=== PATIENT | male | born 1995 | race Asian ===

== ENCOUNTER 2017-04-30 16:12 | Outpatient (CLI) | payer OTHER | END 2017-04-30 16:13 | disposition short-term general hospital (02) | LOC: EMS 16:12 | PROVIDERS: ATTEND Surgery | DX: S01.81XA Laceration without foreign body of other part of head, initial encounter (principal); R55 Syncope and collapse; W20.8XXA Other cause of strike by thrown, projected or falling object, initial encounter; Y93.17 Activity, water skiing and wake boarding; Y92.828 Other wilderness area as the place of occurrence of the external cause | CPT/HCPCS: A0425; A0429 ==